=== PATIENT | female | born 2000 | race Caucasian/White ===

== ENCOUNTER 2018-10-09 11:29 | Emergency (ER) | payer OTHER ==
[2018-10-09 11:37] VITALS: BP 104/72
--- NOTE | 2018-10-09 12:18 | ED ---
Throat Pain/Nasal Congestion - HPI Summary HPI Summary: The pt is a 18 y/o female presenting to [facility] c/o an acute on chronic peritonsillar abscess since yesterday night. She got referred to the ED by her PCP. She notes throat pain with swallowing, difficulty talking and posterior neck swelling but denies fevers, diaphoresis and chills. The aching pain is rated 7/10 in severity. She has had similar sx twice before. In the past, the abscess was drained followed by a dose of Abx at [facility]. The pt is a student at [employer] but hails from [place]. - History of Current Complaint Chief Complaint: EDThroatPain Time Seen by Provider: 10/09/18 12:14 Hx Obtained From: Patient Onset/Duration: Still Present, Other - Oxjff-le-ohloawd Severity: Moderate - 7/10 Associated Signs And Symptoms: Positive: Dysphagia Related History: Other (Noted In Comments) - Repeated peritonsillar abscess at the same site - Allergies/Home Medications Allergies/Adverse Reactions: Allergies Allergy/AdvReac Type Severity Reaction Status Date / Time No Known Allergies Allergy Verified 10/09/18 11:37 PMH/Surg Hx/FS Hx/Imm Hx Previously Healthy: No Endocrine/Hematology History: Denies: Hx Diabetes, Hx Anemia Cardiovascular History: Denies: Hx Hypercholesterolemia, Hx Hypertension Sensory History: Denies: Hx Deafness EENT History: Reports: Other - Peritonsillar abscess x2 - Cancer History Cancer Type, Location and Year: None reported - Surgical History Surgery Procedure, Year, and Place: None reported Infectious Disease History: No Infectious Disease History: Denies: Traveled Outside the [place] in Last 30 Days - Family History Known Family History: Negative: Cardiac Disease, Hypertension, Diabetes - Social History Occupation: Student Lives: Dormitory/Roommates Hx Substance Use: No Smoking Status (MU): Never Smoked Tobacco Review of Systems Negative: Fever, Chills, Skin Diaphoresis Positive: Sore Throat, Other - Positive: Pain with swallowing, difficulty talking, potserior neck swelling All Other Systems Reviewed And Are Negative: Yes Physical Exam - Summary Physical Exam Summary: Constitutional: Well-developed, Well-nourished, Alert. (-) Distressed Skin: Warm, Dry HENT: Normocephalic; Atraumatic; Fluctuant area adjacent to the R tonsil, No uvula deviation, No trismus Eyes: Conjunctiva normal Neck: Musculoskeletal ROM normal neck. (-) JVD, (-) Stridor, (-) Tracheal deviation Cardio: Rhythm regular, rate normal, Heart sounds normal; Intact distal pulses; The pedal pulses are 2+ and symmetric. Radial pulses are 2+ and symmetric. (-) Murmur Pulmonary/Chest wall: Effort normal. (-) Respiratory distress, (-) Wheezes, (-) Rales Abd: Soft, (-) epigastric tenderness, (-) Distension, (-) Guarding, (-) Rebound Musculoskeletal: (-) Edema Lymph: (-) Cervical adenopathy Neuro: Alert, Oriented x3 Psych: Mood and affect Normal Triage Information Reviewed: Yes Vital Signs On Initial Exam: Initial Vitals Temp Pulse Resp BP Pulse Ox 98.7 F 94 16 104/72 98 10/09/18 11:34 10/09/18 11:34 10/09/18 11:34 10/09/18 11:34 10/09/18 11:34 Vital Signs Reviewed: Yes Diagnostics - Vital Signs Vital Signs Temp Pulse Resp BP Pulse Ox 10/09/18 11:34 98.7 F 94 16 104/72 98 - Laboratory Result Diagrams: 10/09/18 12:27 10/09/18 12:27 Lab Statement: Any lab studies that have been ordered have been reviewed, and results considered in the medical decision making process. - CT Neck CT CT Interpretation Completed By: Radiologist Summary of CT Findings: IMPRESSION: 1. ENLARGEMENT OF THE PALATINE TONSILS BILATERALLY WITH EDEMA OF THE RIGHT PHARYNGEAL AND. RETROPHARYNGEAL SOFT TISSUES, WITHOUT LOCULATED FLUID COLLECTION TO SUGGEST ABSCESS. 2. 0.7 CM RIGHT THYROID NODULE. IN THE ABSENCE OF A HISTORY OF MALIGNANCY, THE [place]. [employer] INCIDENTAL THYROID FINDINGS COMMITTEE RECOMMENDS NO FURTHER IMAGING. FOLLOW-UP. The ED physician reviewed this radiology report. Re-Evaluation - Re-Evaluation First Eval Re-Evaluation Time: 15:50 Change: Improved - I discussed the results and dispo plan with the pt. EENT Course/Dx - Course Course Of Treatment: A 18 year-old F presents to the ED with a CC of an acute on chronic peritonsillar abscess. She notes throat pain with swallowing, difficulty talking and posterior neck swelling but denies fevers, diaphoresis and chills. A physical exam revealed a fluctuant area adjacent to the R tonsil , no uvula deviation and no trismus. A neck CT revealed enlargement of the palatine tonsils bilaterally with edema of the R pharyngeal and retro pharyngeal soft tissues without a loculated fluid collection to suggest abscess. There is also a 0.7 cm right thyroid nodule. In the ED course, pt was given Dexamethasone 8 mg IV and Ketorolac 30 mg IV which improved the symptoms. I discussed the care of the pt with Dr. Rosario- ENT specialist who agreed to see the pt in his office tomorrow. Patient will be discharged with a final Dx of pharyngitis. Pt is agreeable with this plan. Allergies noted. - Diagnoses Provider Diagnoses: Pharyngitis - Provider Notifications Discussed Care Of Patient With: Ariel Rosario - Otorhinolaryngology Time Discussed With Above Provider: 15:45 Instructed by Provider To: Other - Dr. Rosario agreed to see the pt in his office tomorrow at 14:30 hrs. Discharge - Sign-Out/Discharge Documenting (check all that apply): Patient Departure - DC - Discharge Plan Condition: Stable Disposition: HOME Prescriptions: Cephalexin CAP* [Keflex CAP*] 500 mg PO BID #14 cap Naproxen TAB* [Naprosyn 250 mg TAB*] 500 mg PO Q8H PRN #30 tab PRN Reason: Pain - Moderate To Severe predniSONE TAB* [Deltasone TAB*] 50 mg PO DAILY #5 tab Referrals: On License Of [facility] [Z.[email or web address], APPLICATION, OTHER] - Ariel Rosario MD [Medical Doctor] - Additional Instructions: Keep your appointment with Dr. Rosario- ENT specialist tomorrow at 14:30 hrs at his office. Return to ED for any new or worsening symptoms - Billing Disposition and Condition Condition: STABLE Disposition: Home - Attestation Statements Document Initiated by Scribe: Yes Documenting Scribe: Azra Larose Provider For Whom Lopez is Documenting (Include Credential): Dr. Leonardo Rod MD Scribe Attestation: Azra Ferrer scribed for Dr. Leonardo Rod MD on 10/11/18 at [facility]. Scribe Documentation Reviewed: Yes Provider Attestation: The documentation as recorded by the Azra shermani accurately reflects the service I personally performed and the decisions made by me, Dr. Leonardo Rod MD Status of Lopez Document: Viewed
[2018-10-09] MEDS ORDERED: Dexamethasone IV* 4 MG/ML 1 ML (4 MG) IV SLOW PU ONE (12:21)
[2018-10-09] MEDS ORDERED: Ketorolac INJ* 30 MG/ML 1 ML VIAL IV PUSH ONE (12:21)
[2018-10-09 12:35] LABS: Hematocrit 41 % (35-47); Mean Corpuscular HGB Conc 34 g/dl (31-36); Mean Corpuscular Hemoglobin 30 pg (27-31); Mean Corpuscular Volume 88 fL (80-97); Mean Platelet Volume 8.4 fL (7.4-10.4); Platelet Count 264 10^3/ul (150-450); Red Blood Count 4.64 10^6/ul (4.00-5.40); Red Cell Distribution Width 13 % (10.5-15); White Blood Count 10.9 10^3/ul (3.5-10.8)
[2018-10-09 12:53] LABS: EGFR Non-African American 88.9 (>60)
[2018-10-09] MEDS ORDERED: Iohexol 300* (CONTRAST) 10 ML SDV IV ONE (14:40)
[2018-10-09] MEDS ORDERED: Cephalexin CAP* 500 MG PO ONE (15:43)
== END 2018-10-09 16:01 | disposition home or self-care (01) ==
LOC: EDSEX → ED 11:29
DX: J02.9 Acute pharyngitis, unspecified (principal)
CPT/HCPCS: 36415; 70491; 80053; 85027; 86140; 87070; 87651; 96374; 96375; 99282; A9270-GY; J1100; J1885; Q9967